=== PATIENT | female | born 1950 | race Caucasian/White ===

== ENCOUNTER 2018-04-16 08:43 | Day surgery (SDC) | payer OTHER ==
[~2018-04-16] VITALS: Ht 152.4 cm; Wt 58.1 kg
[~2018-04-16 08:43] MED LIST: Diprolene 0.05%15 GM; OMEPRAZOLE MAGN20 MG; PRED20; Prinivil10 MG
== END 2018-04-16 12:24 | disposition home or self-care (01) ==
LOC: ORSCSDS 08:43
PROVIDERS: Internal Medicine Gastroenterology
PROC: 0DJD8ZZ Inspection of Lower Intestinal Tract, Via Natural or Artificial Opening Endoscopic (ICD-10-PCS; principal; 2018-04-16 10:00)
DX: Z12.11 Encounter for screening for malignant neoplasm of colon (principal); K64.8 Other hemorrhoids; K57.30 Diverticulosis of large intestine without perforation or abscess without bleeding; Z80.0 Family history of malignant neoplasm of digestive organs; I10 Essential (primary) hypertension; Z79.899 Other long term (current) drug therapy
CPT/HCPCS: J1980; J7120